=== PATIENT | female | born 1935 | race Two or more races ===

== ENCOUNTER 2016-06-01 09:36 | Emergency (ER) | payer OTHER, MEDICAID ==
[~2016-06-01] VITALS: Ht 152.4 cm; Wt 66.7 kg
[2016-06-01 09:53] VITALS: BP 147/83
[2016-06-01] MEDS ORDERED: cloNIDine HCL 0.1 MG TAB ONE (10:02)
[2016-06-01] MEDS ORDERED: cloNIDine HCL 0.1 MG TAB PO ONE (10:15)
== END 2016-06-01 12:25 | disposition home or self-care (01) ==
LOC: ER 09:50
DX: I10 Essential (primary) hypertension (principal)
CPT/HCPCS: 93005

== ENCOUNTER 2019-04-30 18:06 | Emergency (ER) | payer OTHER, MEDICAID ==
[~2019-04-30] VITALS: Ht 147.3 cm; Wt 65.3 kg
[2019-04-30 19:51] LABS: Basophils # (auto) 0 uL; Basophils % (auto) 0.2 % (0.0-2.0); Eosinophils # (auto) 0.1 uL; Eosinophils % (auto) 0.7 % (0.0-7.0); Hematocrit 40.2 % (36.0-46.0); Hemoglobin 13.7 g/dL (12.2-16.2); Lymphocytes # (auto) 1.1 uL; Lymphocytes % (auto) 12.9 % (10.0-50.0); Mean Corpuscular Hemoglobin 29.2 pg (28.0-32.0); Mean Corpuscular Hgb Conc. 34.2 g/dL (32.0-36.0); Mean Corpuscular Volume 85.5 fL (80.0-100.0); Monocytes # (auto) 0.7 uL; Monocytes % (auto) 8.8 % (0.0-12.0); Neutrophils # (auto) 6.4 uL; Neutrophils % (auto) 77.4 % (37.0-80.0); Platelet Count (auto) 181 10^3/uL (140-450); Red Cell Distribution Width 14.2 % (11.8-14.3); White Blood Cell 8.2 10^3/uL (4.4-10.8)
[2019-04-30] MEDS ORDERED: cefTRIAXone W LIDOCAINE 1 GM IM IM ONE (20:00)
[2019-04-30] MEDS ORDERED: cefTRIAXone SOD 1,000 MG VL ONE (20:23)
[2019-04-30] MEDS ORDERED: LIDOCAINE 2% (LOCAL ANESTH.) PF 5ml SDV ONE (20:23)
[2019-04-30 20:32] LABS: Albumin 3.2 g/dL (3.4-5.0); Calcium 8.5 mg/dL (8.5-10.1); Potassium 3.4 mmol/L (3.5-5.1)
[2019-04-30 20:35] LABS: BUN/Creatinine Ratio 19.7
[2019-04-30 20:40] LABS: Bilirubin, Total 0.3 mg/dL (0.2-1.0); Total Protein 8.1 g/dL (6.4-8.2)
[2019-04-30 21:12] VITALS: BP 139/76
== END 2019-04-30 21:14 | disposition home or self-care (01) ==
LOC: ER 18:06
DX: J18.9 Pneumonia, unspecified organism (principal); J20.9 Acute bronchitis, unspecified; J01.00 Acute maxillary sinusitis, unspecified; I10 Essential (primary) hypertension
CPT/HCPCS: 36415; 71046; 80053; 84484; 85025; 96372; 99284; J0696; J2001

== ENCOUNTER 2023-04-12 17:20 | Inpatient (IN) | payer OTHER, MEDICAID ==
[~2023-04-12] VITALS: Ht 152.4 cm; Wt 66.7 kg
[2023-04-12 18:33] LABS: Basophils # (auto) 0.1 10 ^3/uL (0-0.2); Basophils % (auto) 1.1 % (0.0-2.0); Eosinophils # (auto) 0 10 ^3/uL (0-0.8); Eosinophils % (auto) 0.1 % (0.0-7.0); Hematocrit 41.3 % (36.0-46.0); Hemoglobin 13.4 g/dL (12.2-16.2); Lymphocytes # (auto) 1.6 10 ^3/uL (0.4-5.4); Lymphocytes % (auto) 24.8 % (10.0-50.0); Mean Corpuscular Hemoglobin 27.9 pg (28.0-32.0); Mean Corpuscular Hgb Conc. 32.4 g/dL (32.0-36.0); Monocytes # (auto) 0.3 10 ^3/uL (0-1.3); Monocytes % (auto) 4.4 % (0.0-12.0); Neutrophils # (auto) 4.4 10 ^3/uL (1.6-8.6); Neutrophils % (auto) 69.6 % (37.0-80.0); Nucleated Red Blood Cells % 0.1 %; Red Cell Distribution Width 15.4 % (11.8-14.3); White Blood Cell 6.3 10^3/uL (4.4-10.8)
[2023-04-12 18:50] LABS: INR 1.07 (0.9-1.15); Partial Thromboplastin Time 26.9 SEC (24.5-34.5); Prothrombin Time 11.2 sec (9.3-11.8)
[2023-04-12 19:05] LABS: Alanine Aminotransferase 94 U/L (7-40); Albumin 4.3 g/dL (3.2-4.8); Alkaline Phosphatase 63 U/L (46-116); Anion Gap 8 (5-15); Aspartate Aminotransferase 77 U/L (13-40); BUN/Creatinine Ratio 14.5 (10.0-20.0); Bilirubin, Total 0.6 mg/dL (0.2-1.0); Blood Urea Nitrogen 22 mg/dL (9-23); Calcium 8.7 mg/dL (8.7-10.4); Carbon Dioxide 25 mmol/L (20-30); Chloride 105 mmol/L (98-107); Glucose 118 mg/dL (74-106); Sodium 138 mmol/L (136-145); Total Protein 7.8 g/dL (5.7-8.2)
[2023-04-12] MEDS ORDERED: ASPirin-EC 81 mg tab PO ONE (19:45)
[2023-04-12] MEDS ORDERED: NITROGLYCERIN 0.4 MG SL TAB SL PRN (20:00)
[2023-04-12] MEDS ORDERED: SODIUM CHLORIDE 0.9% 1,000 ML IV ONE (20:00)
[2023-04-12] MEDS ORDERED: ACETAMINOPHEN 325 MG TAB PO PRN (20:00)
[2023-04-12] MEDS ORDERED: MORPHINE SULFATE INJ 2 MG/ml SYRG IV PRN (20:00)
[2023-04-12] MEDS ORDERED: HYDROcodone-ACET 5/325MG TAB PO PRN (20:00)
[2023-04-12] MEDS ORDERED: FUROSEMIDE 20 MG/2 ML VIAL IV ONE (20:00)
[2023-04-12] MEDS ORDERED: SPIRONOLACTONE 25 MG TAB PO ONE (20:00)
[2023-04-12] MEDS: MAGNESIUM SULFATE 1GM/100ML 100 ML IV SCH ×2 (20:11→20:51)
[2023-04-12] MEDS ORDERED: ENOXAPARIN SOD 80 MG/0.8ML SYRINGE SC ONE (20:15)
[2023-04-12 20:20] VITALS: PULSE 55; RESP 18; O2SAT 100
[2023-04-12 21:36] LABS: Urine Bacteria FEW /hpf (None Seen); Urine Blood Negative /uL (Negative); Urine Clarity Clear (Clear); Urine Color Colorless (Yellow); Urine Protein, UAD Negative (Negative); Urine Specific Gravity 1.009 (1.001-1.035); Urine Urobilinogen Normal (Negative); Urine WBC 21 /hpf (0 - 5); Urine pH 6.5 (5.0-8.0)
[2023-04-12] MEDS: ATORVASTATIN 20 MG TAB PO SCH (21:57)
[2023-04-12 23:00] VITALS: BP 176/70; PULSE 55; RESP 17; TEMP 98.6; O2SAT 98
[2023-04-13] VITALS (18 sets, daily range): BP systolic 117–176; BP diastolic 47–75; PULSE 50–84; RESP 15–22; TEMP 97.5–98.6; O2SAT 95–100
[2023-04-13 05:52] LABS: Chloride 103 mmol/L (98-107); Potassium 3.6 mmol/L (3.5-5.1); Sodium 139 mmol/L (136-145)
[2023-04-13 05:53] LABS: Anion Gap 10 (5-15); Calcium 8.8 mg/dL (8.5-10.1); Carbon Dioxide 26 mmol/L (20-30)
[2023-04-13 05:58] LABS: BUN/Creatinine Ratio 15.6 (10.0-20.0); Blood Urea Nitrogen 22 mg/dL (9-23); Glucose 91 mg/dL (74-106)
[2023-04-13] MEDS: ASPirin 81 mg TAB PO SCH (08:19)
[2023-04-13] MEDS ORDERED: HYDR25TA5 PO (08:44)
[2023-04-13] MEDS ORDERED: LOSA100T58 PO (08:44)
[2023-04-13] MEDS ORDERED: AMIO200T13 PO (08:44)
[2023-04-13] MEDS ORDERED: METO25TA93 PO (08:44)
[2023-04-13] MEDS ORDERED: LEVO75TA6 PO (08:44)
[2023-04-13] MEDS ORDERED: ASPI81CH59 PO (08:44)
[2023-04-13] MEDS ORDERED: PANT40T PO (08:44)
[2023-04-13] MEDS ORDERED: hydroCHLOROthiazide 25 MG TAB PO ONE (10:45)
[2023-04-13] MEDS ORDERED: PANTOPRAZOLE 40 MG TAB PO ONE (10:45)
[2023-04-13] MEDS ORDERED: LOSARTAN POTASSIUM 50 MG TAB PO ONE (10:45)
[2023-04-13] MEDS ORDERED: cefTRIAXone 1GM/50ML D5W 50 ML IV ONE (11:00)
[2023-04-13] MEDS: ATORVASTATIN 20 MG TAB PO SCH (19:48)
[2023-04-14 05:00] VITALS: BP 136/55; PULSE 50; RESP 18; TEMP 98.2; O2SAT 98
[2023-04-14 05:35] LABS: Basophils # (auto) 0 10 ^3/uL (0-0.2); Basophils % (auto) 0.3 % (0.0-2.0); Eosinophils # (auto) 0 10 ^3/uL (0-0.8); Eosinophils % (auto) 0.9 % (0.0-7.0); Hematocrit 39.6 % (36.0-46.0); Hemoglobin 12.8 g/dL (12.2-16.2); Lymphocytes # (auto) 1.4 10 ^3/uL (0.4-5.4); Lymphocytes % (auto) 28.7 % (10.0-50.0); Mean Corpuscular Hemoglobin 27.9 pg (28.0-32.0); Mean Corpuscular Hgb Conc. 32.5 g/dL (32.0-36.0); Mean Corpuscular Volume 85.8 fL (80.0-100.0); Monocytes # (auto) 0.4 10 ^3/uL (0-1.3); Monocytes % (auto) 8.3 % (0.0-12.0); Neutrophils % (auto) 61.8 % (37.0-80.0); Nucleated Red Blood Cells % 0.1 %; Red Blood Cells 4.61 10^6/uL (4.0-5.20); Red Cell Distribution Width 15.1 % (11.8-14.3); White Blood Cell 4.8 10^3/uL (4.4-10.8)
[2023-04-14 05:39] LABS: Chloride 107 mmol/L (98-107); Potassium 3.9 mmol/L (3.5-5.1)
[2023-04-14 05:40] LABS: Calcium 8.6 mg/dL (8.5-10.1)
[2023-04-14 05:45] LABS: BUN/Creatinine Ratio 17.1 (10.0-20.0); Blood Urea Nitrogen 24 mg/dL (9-23); Glucose 100 mg/dL (74-106)
[2023-04-14 05:50] LABS: Carbon Dioxide 26 mmol/L (20-30)
[2023-04-14] MEDS ORDERED: LEVOTHYROXINE SODIUM 25 MCG TAB PO SCH (07:00)
[2023-04-14 08:00] VITALS: BP 142/94; PULSE 58; PULSE 71; RESP 16; TEMP 97.7; O2SAT 98
[2023-04-14 08:26] LABS: Anion Gap 8 (5-15); Sodium 141 mmol/L (136-145)
[2023-04-14 09:00] VITALS: BP 142/49; PULSE 71; RESP 16; TEMP 97.7; O2SAT 98
[2023-04-14] MEDS ORDERED: cefTRIAXone 1GM/50ML D5W 50 ML IV SCH (09:00)
[2023-04-14] MEDS: ASPirin 81 mg TAB PO SCH (09:33)
[2023-04-14] MEDS ORDERED: PANTOPRAZOLE 40 MG TAB PO SCH (10:00)
[2023-04-14] MEDS ORDERED: LOSARTAN POTASSIUM 50 MG TAB PO SCH (10:00)
[2023-04-14] MEDS ORDERED: hydroCHLOROthiazide 25 MG TAB PO SCH (10:00)
[2023-04-15 10:41] LABS: Free T3 1.92 pg/mL (2.3-4.2)
[2023-04-15 10:42] LABS: Free T4 (Free Thyroxine) 1.3 ng/dL (0.89-1.76)
== END 2023-04-14 13:34 | disposition home or self-care (01) | DRG 309 ==
LOC: ER 17:20 → TELE 20:08 → DOU IN ICU 23:00 → TELE-WESTW 04-13 15:17
PROVIDERS: ADMIT Nurse Practitioner Family; ATTEND Nurse Practitioner Family
DX: R00.1 Bradycardia, unspecified (principal); I13.0 Hypertensive heart and chronic kidney disease with heart failure and stage 1 through stage 4 chronic kidney disease, or unspecified chronic kidney disease; E66.9 Obesity, unspecified; Z68.28 Body mass index [BMI] 28.0-28.9, adult; I25.10 Atherosclerotic heart disease of native coronary artery without angina pectoris; K21.9 Gastro-esophageal reflux disease without esophagitis; N18.30 Chronic kidney disease, stage 3 unspecified; T46.2X5A Adverse effect of other antidysrhythmic drugs, initial encounter; R74.8 Abnormal levels of other serum enzymes; I50.9 Heart failure, unspecified; R94.31 Abnormal electrocardiogram [ECG] [EKG]; E07.9 Disorder of thyroid, unspecified; Y92.89 Other specified places as the place of occurrence of the external cause; Z95.5 Presence of coronary angioplasty implant and graft; Z90.710 Acquired absence of both cervix and uterus
CPT/HCPCS: 36415; 71045; 80048; 80053; 81001; 83735; 83880; 84439; 84443; 84481; 84484; 85025; 85610; 85730; 87081; 93005; 93306; 96361; 96374; 97163; G0378; J0696

== ENCOUNTER 2023-05-29 09:51 | Day surgery (SDC) | payer OTHER, MEDICAID ==
[~2023-05-29] VITALS: Ht 162.6 cm; Wt 67.6 kg
[~2023-05-29 09:51] MED LIST: HYDR25TA5 PO; LEVO75TA6 PO; LOSA100T58 PO; METO25TA93 PO; PANT40T PO; PRAV20TA3 PO
[2023-05-29] MEDS ORDERED: PANT40TA57 PO (10:36)
[2023-05-29] MEDS ORDERED: VANCOMYCIN 1GM/200ML 200 ML IV ONE ×2 (10:45→12:55)
[2023-05-29] MEDS ORDERED: LIDOCAINE 2%HCL (LOCAL ANESTH.) INJ 20ML MDV ONE (12:53)
[2023-05-29] MEDS ORDERED: VANCOMYCIN HCL 1000 MG VL ONE (12:55)
[2023-05-29] MEDS ORDERED: MIDAZOLAM HCL 2MG/2ML 2ml VIAL (1mg/ml) ONE (12:55)
[2023-05-29] MEDS ORDERED: fentaNYL CITRATE 100 MCG/2 ML VL ONE (12:55)
[2023-05-29] MEDS ORDERED: IOHEXOL 350 MG/ML 100ML IJ ONE (13:40)
[2023-05-29 14:25] VITALS: BP 143/67; PULSE 65; RESP 12; TEMP 97.4; O2SAT 98
[2023-05-29 14:41] VITALS: BP 142/62; PULSE 65; RESP 20; O2SAT 97
[2023-05-29 14:56] VITALS: BP 136/66; PULSE 65; RESP 17; O2SAT 96
[2023-05-29 15:11] VITALS: BP 145/74; PULSE 65; RESP 15; O2SAT 96
[2023-05-29 15:26] VITALS: BP 145/80; PULSE 65; RESP 14; O2SAT 99
[2023-05-29 15:42] VITALS: BP 132/81; PULSE 65; RESP 18; O2SAT 99
[2023-05-29] MEDS ORDERED: ACETAMINOPHEN 500 MG TAB PO ONE ×2 (16:00)
== END 2023-05-29 16:15 | disposition home or self-care (01) ==
LOC: CATH 09:51
PROVIDERS: ATTEND Internal Medicine
DX: I49.5 Sick sinus syndrome (principal); I44.39 Other atrioventricular block; I47.19 Other supraventricular tachycardia; I10 Essential (primary) hypertension; E78.5 Hyperlipidemia, unspecified; Z95.5 Presence of coronary angioplasty implant and graft; Z90.710 Acquired absence of both cervix and uterus; Z79.899 Other long term (current) drug therapy
CPT/HCPCS: 33208; 71045; C1785; C1898; J2250; J3010; J3370; J7030; Q9967; 99152

== ENCOUNTER 2024-06-09 15:22 | Inpatient (IN) | payer OTHER, MEDICAID ==
[~2024-06-09] VITALS: Ht 152.4 cm; Wt 64.5 kg
[~2024-06-09 15:22] MED LIST changes: +LOSA-535 PO; -LOSA100T58 PO; -PANT40T PO; +PANT40TA57 PO
--- NOTE | 2024-06-09 15:42 | ED.PDOC ---
Musculoskeletal HPI Comments HPI: Poor Historian. 88-year-old female sent by her doctor to rule out DVT on right lower extremity. Patient has a right lower extremity [id number] focal redness and tenderness there. He sent her for ultrasound. Denies any other associated symptoms of chest pain or shortness of breath or dizziness. Past Medcial History: Hypertension, thyroid Past Surgical History: Pacemaker, right knee surgery REVIEW OF SYSTEMS: CONSTITUTIONAL: Denies acute: fever, diaphoresis, chills, generalized weakness. HEAD: Denies acute: headache, photophobia Eyes: Denies acute: Double vision, vision loss, eye pain, eye discharge. EARS: Denies acute: tinnitus, hearing loss, ear discharge, ear pain, THROAT: Denies acute: sore throat, swelling, difficulty swallowing , pain with swallowing, change in voice. NECK: Denies acute: neck pain, neck swelling, stiff neck. HEART: Denies acute : chest pain, palpitations, LUNGS: Denies acute: SOB, wheezing, cough, hemoptysis ABDOMEN: Denies acute: abdominal pain, Nausea, Vomiting, diarrhea, melena , hematemesis, hematochezia SKIN: Denies acute: itchiness. EXTREMITIES: Denies acute: calf pain, numbness, tingling, weakness, Denies acute: Low back pain. Neuro: Denies acute: focal neurological deficit, motor or sensory focal neurological deficit, tremors, seizure like activity, confusion, dizziness, change in mental status, loss of bowel or bladder function, cauda equina like symptoms. : Denies acute: dysuria, hematuria, flank pain, increase in urinary frequency. PSYCH: Denies acute: hallucination, suicidal ideation, homicidal ideation. FEMALE: Denies acute: abnormal vaginal bleeding, foul odor, unusual discharge. PHYSICAL EXAM: General: no acute distress, awake and alert. Head: normocephalic, atraumatic. Neck: supple, trachea is midline, no swelling. Throat: Normal phonation. Eyes:, no erythema, no purulent discharge, no proptosis, no icterus. Heart: regular rate, regular rhythm, no significant murmur appreciated. Lungs: no apparent respiratory distress, Able to speak in full sentences. No wheezing, no rhonchi, no crackles. No stridors Clear to auscultation bilaterally. Abdomen: non tender to palpation, non distended, soft, no guarding, no rebound, + bowel sounds. Neuro: Awake, Alert, oriented to name, self, situation, follows commands GCS=15. Speech is normal. Skin: no petechia, no purpura, no cyanosis, non-pale, not jaundice. Lower extremities: --no - Pitting edema evaluation of the right lower extremity. Noted focal area of redness that is tender to palpation in the medial calf. Patient is neurovascularly intact in the affected extremity. Pedal pulses palpable. Sensory and motor are present. There is noted varicose veins present. Makes eye contact. moves all four extremities. Face: no apparent facial droop. Ambulating in the ED independently. Time Seen by MD: 15:23 Primary Care Provider: KAEL Buckley Notes: Medications, Allergies Allergies: Coded Allergies: NO KNOWN ALLERGIES (Unverified , 05/27/23) Home Meds Reported Medications Pantoprazole Sodium Sesquihydr (Pantoprazole Sodium Dr) 40 Mg Tab, 40 MG PO DAILY for gerd, TAB 05/29/23 Pravastatin Sodium (PRAVACHOL TABLET) 20 Mg Tb, 1 TAB PO DAILY for hyperlipidemia, #30 TAB 5 Refills 05/27/23 Metoprolol Succinate (Metoprolol Succinate Er) 25 Mg Tab, 1 TAB PO BID for htn 04/13/23 Hctz (Hydrochlorothiazide) 25 Mg Tab, 1 TAB PO DAILY for edema/htn 04/13/23 Levothyroxine Sodium (Levothyroxine Sodium) 75 Mcg Tab, 1 TAB PO DAILY for low thyroid 04/13/23 Losartan Potassium (Losartan Potassium) 100 Mg Tab, 1 TAB PO DAILY for htn 04/13/23 Information Source: Patient, Relative Location: Right Past Medical History PAST MEDICAL HISTORY: GERD, HTN, Thyroid Surgical History: Hysterectomy, Thyroidectomy MULTIMEDIA AUTHORING SPECIALIST History: No Pertinent MULTIMEDIA AUTHORING SPECIALIST History Family History Family History: Reviewed,noncontributory to illness Social History Smoker: Non-Smoker Alcohol: Denies ETOH Use Drugs: Denies Drug Use Lives In: Home Was a procedure done? Was a procedure done?: No Differential Diagnosis EXT Differential Diagnosis: Other (Leg swellingDdx include but not limited to DVT, ischemic limb, pitting edema, volume overload, CHF, cellulitis, hematoma, compartment syndrome, dependent edema, venous stasis.) X-Ray, Labs, Meds, VS Vital Signs Date Time Temp Pulse Resp B/P (MAP) Pulse Ox O2 Delivery O2 Flow Rate FiO2 06/09/24 20:00 64 06/09/24 15:40 98.3 74 16 163/69 (100) 97 Lab Test 06/09/24 20:16 06/09/24 18:06 06/09/24 16:33 Range/Units Troponin I High Sensitivity 156 *H 160 *H 164 *H </=34 ng/L White Blood Count 5.1 4.4-10.8 10^3/uL Red Blood Count 4.44 4.0-5.20 10^6/uL Hemoglobin 12.4 12.2-16.2 g/dL Hematocrit 38.1 36.0-46.0 % Mean Corpuscular Volume 85.8 80.0-100.0 fL Mean Corpuscular Hemoglobin 28.0 28.0-32.0 pg Mean Corpuscular Hemoglobin Concent 32.6 32.0-36.0 g/dL Red Cell Distribution Width 14.0 11.8-14.3 % Platelet Count 164 140-450 10^3/uL Mean Platelet Volume 7.9 6.9-10.8 fL Neutrophils (%) (Auto) 62.6 37.0-80.0 % Lymphocytes (%) (Auto) 27.5 10.0-50.0 % Monocytes (%) (Auto) 8.8 0.0-12.0 % Eosinophils (%) (Auto) 0.8 0.0-7.0 % Basophils (%) (Auto) 0.3 0.0-2.0 % Neutrophils # (Auto) 3.2 1.6-8.6 10 ^3/uL Lymphocytes # (Auto) 1.4 0.4-5.4 10 ^3/uL Monocytes # (Auto) 0.4 0-1.3 10 ^3/uL Eosinophils # (Auto) 0 0-0.8 10 ^3/uL Basophils # (Auto) 0 0-0.2 10 ^3/uL Nucleated Red Blood Cells 0.1 % Erythrocyte Sedimentation Rate 26 H 0-20 mm/hr Sodium Level 140 136-145 mmol/L Potassium Level 3.6 3.5-5.1 mmol/L Chloride Level 104 98-107 mmol/L Carbon Dioxide Level 27 20-31 mmol/L Anion Gap 9 5-15 Blood Urea Nitrogen 26 H 9-23 mg/dL Creatinine 1.21 H 0.550-1.02 mg/dL Glomerular Filtration Rate Calc 43 >90 mL/min BUN/Creatinine Ratio 21.5 H 10.0-20.0 Serum Glucose 98 74-106 mg/dL Lactic Acid Level 0.8 0.4-2.0 mmol/L Calcium Level 9.4 8.7-10.4 mg/dL Total Bilirubin 0.5 0.2-1.0 mg/dL Aspartate Amino Transferase (AST) 27 13-40 U/L Alanine Aminotransferase (ALT) 25 7-40 U/L Alkaline Phosphatase 72 46-116 U/L C-Reactive Protein High Sensitivity 0.68 <1.0 mg/dL B-Type Natriuretic Peptide 187.59 0-100 pg/mL Total Protein 7.4 5.7-8.2 g/dL Albumin 4.2 3.2-4.8 g/dL Current Medications Medications (Trade) Dose Ordered Sig/Pinky Route Start Time Stop Time Status Last Admin Enoxaparin Sodium (Lovenox) 60 mg ONCE ONCE SC 06/09/24 17:15 06/09/24 17:16 DC 06/09/24 17:23 [place] [id number] Ph: [phone] DIAGNOSTIC IMAGING Diagnostic Imaging Report : [id number] Signed PATIENT: SCOTTIE SWENSONACCT: [id number] UNIT: [id number] : 1935 LOC: ER ROOM / BED: / AGE / SEX: 88 / F ADM STATUS: REG ER SERVICE [id number] ORDERING PHYSICIAN: DEE PAREDES DO PROCEDURE(s): BLDVT - BiLat Lower DVT REASON: pain, redness ORDER NUMBER(s): [id number], ACCESSION NUMBER(s): [id number] Bilateral lower extremity venous duplex Clinical History: pain, redness Comparison: None Technique: Duplex Doppler evaluation of the deep venous systems of both lower extremities from the common femoral veins to the popliteal veins including color Doppler and spectral/pulsed waveform analysis was performed. Findings: RIGHT SIDE: The common femoral vein demonstrates appropriate compressibility and waveform variability. There is compressibility/patency of the great saphenous vein at the proximal thigh. The femoral vein demonstrates lack of compressibility and phasic flow in the distal segment. The proximal and mid segments are patent. The deep femoral vein demonstrates appropriate compressibility and waveform variability. The popliteal vein demonstrates lack of compressibility and phasic flow. There is color flow at the tibioperoneal trunk and in the posterior tibial vein. LEFT SIDE: The common femoral vein demonstrates appropriate compressibility and waveform variability. There is compressibility/patency of the great saphenous vein at the proximal thigh. The femoral vein demonstrates appropriate compressibility and waveform variability. The deep femoral vein demonstrates appropriate compressibility and waveform variability. The popliteal vein demonstrates appropriate compressibility and waveform variability. There is color flow at the tibioperoneal trunk and in the posterior tibial vein. Impression: Right lower extremity : Nonocclusive DVT involving distal femoral and popliteal veins. Left lower extremity: No DVT. Dr. Paredes was notified of findings upon completion of the exam by the tyson hnologist on 06/09/2024. ATED BY: ANA MARIA MONTES MD DICTATED DATE/TIME: 06/09/241634 SIGNED BY: ANA MARIA MONTES MD SIGNED DATE/TIME: 06/09/241634 CC: Time of 1ST Reevaluation: 20:38 (The case was discussed with the admitting team (HPI, physical exam, labs and diagnostic tests that were available at the time of disposition, ED course, treatment plan) on the phone. They agreed to admit the patient to their service and assume care of this patient from this point forward. Nurse practitioner Inge) Reevaluation 1ST: Unchanged Patient Education/Counseling: Diagnosis, Treatment Family Education/Counseling: Other Comments Patient presented with the above HPI.---leg pain and swelling---workup was initiated. patient was found with the above mentioned diagnosis. the following medications were ordered: please refer to order lists of meds and tests obtained by myself Dr. Paredes. Patient ED course and VS have been stabilized. Patient has been reassessed in the ED and remained in a stable condition. Pertinent incidental findings were discussed with the patient and/or family. Patient/family voices understanding and is agreeable with plan. Patient has been observed in the ED adequate length of time to insure improvement/stability. Escalation of care considered: Consideration of escalation to observation or admission Patient was ADMITTED to the medicine team for further evaluation and treatment of their presentation. Lovenox initiated in the ED. All the reports of any imaging studies that were ordered by myself were reviewed by myself. Departure 1 Departure Time of Disposition: 17:00 Impression: Primary Impression: DVT (deep vein thrombosis) in Additional Impressions: Elevated troponin Pulmonary embolus Disposition: ADMITTED INPATIENT Admit to: Tele Condition: Guarded Discharged With: Self Critical Care Note Critical Care Time?: Yes (1 hr-critical care time only) I personally scribed for DEE PAREDES DO ([email or web address]) on 06/09/24 at 19:26. Electronically submitted by Lj Redman ([email or web address]). DEE PAREDES DO Jun 09, 2024 15:42
--- NOTE | 2024-06-09 16:37 | DVH ---
Bilateral lower extremity venous duplex Clinical History: pain, redness Comparison: None Technique: Duplex Doppler evaluation of the deep venous systems of both lower extremities from the co mmon femoral veins to the popliteal veins including color Doppler and spectral/pulsed waveform analys is was performed. Findings: RIGHT SIDE: The common femoral vein demonstrates appropriate compressibility and waveform variability. There is compressibility/patency of the great saphenous vein at the proximal thigh. The femoral vein demonstrates lack of compressibility and phasic flow in the distal segment. The pro ximal and mid segments are patent. The deep femoral vein demonstrates appropriate compressibility and waveform variability. The popliteal vein demonstrates lack of compressibility and phasic flow. There is color flow at the tibioperoneal trunk and in the posterior tibial vein. LEFT SIDE: The common femoral vein demonstrates appropriate compressibility and waveform variability. There is compressibility/patency of the great saphenous vein at the proximal thigh. The femoral vein demonstrates appropriate compressibility and waveform variability. The deep femoral vein demonstrates appropriate compressibility and waveform variability. The popliteal vein demonstrates appropriate compressibility and waveform variability. There is color flow at the tibioperoneal trunk and in the posterior tibial vein. Impression: Right lower extremity : Nonocclusive DVT involving distal femoral and popliteal veins. Left lower extremity: No DVT. Dr. Cruz was notified of findings upon completion of the exam by the technologist on 06/09/2024.
[2024-06-09 17:00] LABS: Basophils # (auto) 0 10 ^3/uL (0-0.2); Basophils % (auto) 0.3 % (0.0-2.0); Eosinophils # (auto) 0 10 ^3/uL (0-0.8); Eosinophils % (auto) 0.8 % (0.0-7.0); Hematocrit 38.1 % (36.0-46.0); Hemoglobin 12.4 g/dL (12.2-16.2); Lymphocytes # (auto) 1.4 10 ^3/uL (0.4-5.4); Lymphocytes % (auto) 27.5 % (10.0-50.0); Mean Corpuscular Hgb Conc. 32.6 g/dL (32.0-36.0); Mean Corpuscular Volume 85.8 fL (80.0-100.0); Monocytes # (auto) 0.4 10 ^3/uL (0-1.3); Monocytes % (auto) 8.8 % (0.0-12.0); Neutrophils # (auto) 3.2 10 ^3/uL (1.6-8.6); Neutrophils % (auto) 62.6 % (37.0-80.0); Nucleated Red Blood Cells % 0.1 %; Platelet Count (auto) 164 10^3/uL (140-450); Red Blood Cells 4.44 10^6/uL (4.0-5.20); White Blood Cell 5.1 10^3/uL (4.4-10.8)
[2024-06-09] MEDS: ENOXAPARIN SOD 60 MG/0.6 ML SYRINGE SC ONE (17:23)
[2024-06-09 17:26] LABS: Alanine Aminotransferase 25 U/L (7-40); Albumin 4.2 g/dL (3.2-4.8); Alkaline Phosphatase 72 U/L (46-116); Anion Gap 9 (5-15); Aspartate Aminotransferase 27 U/L (13-40); BUN/Creatinine Ratio 21.5 (10.0-20.0); Bilirubin, Total 0.5 mg/dL (0.2-1.0); CRP High Sensitivity 0.68 mg/dL (<1.0); Calcium 9.4 mg/dL (8.7-10.4); Carbon Dioxide 27 mmol/L (20-31); Chloride 104 mmol/L (98-107); Glucose 98 mg/dL (74-106); Potassium 3.6 mmol/L (3.5-5.1); Sodium 140 mmol/L (136-145); Total Protein 7.4 g/dL (5.7-8.2)
[2024-06-09 17:27] LABS: Blood Urea Nitrogen 26 mg/dL (9-23)
[2024-06-09 17:39] LABS: Erythrocyte Sedimentation Rate 26 mm/hr (0-20)
--- NOTE | 2024-06-09 20:33 | DVH ---
PROCEDURE: CT CT ANGIO CHEST CONTRAST 06/09/2024 07:54 PM INDICATION: dvt COMPARISON: None TECHNIQUE: Coverage: Thorax IV contrast: Administered Phases: Arterial Multiplanar 3-D Maximum Intensity Projection images (MIP) reconstructions were created by the technnaya stout in the coronal and sagittal planes as part of the CT angiography protocol. Adverse events: None Medication laboratory values were reviewed to verify the patient meets criteria for contrast administ ration. All CT scans at this medical facility are performed using dose modulation techniques as appropriate t o a performed exam including the following: Automated exposure control was utilized; adjustment of th e MA and/or KV according to patient size; and use of iterative reconstruction technique. Radiation dose: CTDIvol 23 mGy, DLP 717 mGy*cm. FINDINGS: Cardiovascular: Pulmonary embolus in the lobar and segmental branches of the right upper lobe , occlu sive in distal lower branch. Aorta is normal in caliber. The heart is mildly enlarged. Multilead pace maker in the left upper chest wall with leads extending, cardiac chambers. Coronary artery calcificat ion noted. Lungs: Mild bibasilar subsegmental atelectasis. No lobar consolidation. No pleural effusion. No pneum othorax. The airways are patent. Thyroid: Unremarkable Esophagus: Unremarkable. Lymphatics: No hilar or mediastinal lymphadenopathy. Bones/soft tissues: No acute abnormality. Mild anterior compression deformity of T11 with approximate ly 30% loss of height without retropulsion. Severe bilateral glenohumeral joint osteoarthritis Upper abdomen: No acute abnormality. Other: None. IMPRESSION: 1. Occlusive and partially occlusive segmental branches of the right upper pulmonary arteries. Critical Result: Pulmonary emboli Findings discussed with DEE PAREDES at 06/09/2024 08:25 PM, and acknowledged receipt and understandin g of the findings. ..
[2024-06-09] MEDS ORDERED: ACETAMINOPHEN 325 MG TAB PO PRN (20:45)
[2024-06-09] MEDS ORDERED: HYDROcodone-ACET 5/325MG TAB PO PRN (20:45)
[2024-06-09] MEDS ORDERED: ONDANSETRON HCL 4 MG/2 ML VIAL IV PRN (20:45)
[2024-06-09] MEDS: IOHEXOL 350 MG/ML 100ML IJ ONE (20:58)
[2024-06-09 21:02] VITALS: PULSE 65; RESP 18; O2SAT 98
[2024-06-09 21:39] LABS: Triglycerides 118 mg/dL (< 150)
[2024-06-09 21:41] LABS: HDL Cholesterol 40 mg/dL (40-59)
[2024-06-09 21:43] LABS: Cholesterol 209 mg/dL (< 200); LDL Cholesterol 159 mg/dL (< 100)
[2024-06-09 22:00] VITALS: PULSE 65; RESP 19; O2SAT 96
[2024-06-09 22:32] LABS: INR 1.13 (0.9-1.15); Prothrombin Time 11.8 sec (9.3-11.8)
[2024-06-10] MEDS: FAMOTIDINE 20 MG TAB PO SCH (00:44)
[2024-06-10] MEDS: ATORVASTATIN 20 MG TAB PO SCH (00:44)
--- NOTE | 2024-06-10 03:53 | DVHHP2 ---
Admitting Diagnosis: Pulmonary embolism, right lower extremity DVT, Elevated troponin History of Present Illness History Source: Patient, Family Exam Limitations: No limitations HPI Mrs. Eryn Miller is an 88 yo female with a past medical history of hypertension, Thyroid, pacemaker, right knee surgery who presents with a chief complaint of right lower extremity swelling , sent by her PCP to the ED to rule out DVT. Patient reports right lower extremity pain, right sided chest pain. Patient denies dyspnea, headaches, dizziness, lightheadedness, abdominal pain, nausea, vomiting, fevers, chills. Patient bilateral lower extremity venous ultrasound resulted Right lower extremity : Nonocclusive DVT involving distal femoral and popliteal veins. Left lower extremity: No DVT. Patient CTA chest resulted 1. Occlusive and partially occlusive segmental branches of the right upper pulmonary arteries. Critical Result: Pulmonary emboli. Patient troponin levels 164, 160, BNP 187, Na 140, K 3.6, BUN 26/1.21, WBC 5.1, H&H 12.4/38.1, Platelets 164. Patient daughter at bedside reports patient had a stent placement by Dr. Walsh and a pacemaker placement about a year ago. Patient admitted for further evaluation and treatment. Home Meds Reported Medications Pantoprazole Sodium Sesquihydr (Pantoprazole Sodium Dr) 40 Mg Tab, 40 MG PO DAILY for gerd, TAB 05/29/23 Pravastatin Sodium (PRAVACHOL TABLET) 20 Mg Tb, 1 TAB PO DAILY for hyperlipidemia, #30 TAB 5 Refills 05/27/23 Metoprolol Succinate (Metoprolol Succinate Er) 25 Mg Tab, 1 TAB PO BID for htn 04/13/23 Hctz (Hydrochlorothiazide) 25 Mg Tab, 1 TAB PO DAILY for edema/htn 04/13/23 Levothyroxine Sodium (Levothyroxine Sodium) 75 Mcg Tab, 1 TAB PO DAILY for low thyroid 04/13/23 Losartan Potassium (Losartan Potassium) 100 Mg Tab, 1 TAB PO DAILY for htn 04/13/23 Past Medical History Cardiac: HTN Pulmonary: No pertinent Hx Central Nervous System: No pertinent Hx GI: No pertinent Hx Hemotology/Oncology: No pertinent Hx Hepatobiliary: No pertinent Hx Psychiatric: No pertinent Hx Musculoskeletal: No pertinent Hx Rheumotologic: No pertinent Hx Infectious Disease: No peritnent Hx ENT: No pertinent Hx Renal/: No pertinent Hx Endocrine: Hypothyroidism Dermatology: No pertinent Hx Past Surgical History: Pacemaker Patient Family History: Patient reports no known family medical history. Smoker: No Hx (Negative) Alocohol: None Drugs: None Lives with: With family Domestic Violence: Neg Review of Systems Constitutional: No symptom reported Ears, Nose, & Throat: No symptom reported Eyes: No symptom reported Pulmonary/Respiratory: No symptom reported Cardiovascular: Chest Pain Gastrointestinal: No symptom reported Genitourinary: No symptom reported Musculoskeletal: Leg pain (right lower extremity pain with swelling) Skin: No symptom reported Psychiatric: No symptom reported Endocrine: No symptom reported Hemotologic/Lymphatic: No symptom reported H&P Exam Vital Signs Vital Signs Date Time Temp Pulse Resp B/P (MAP) Pulse Ox O2 Delivery O2 Flow Rate FiO2 06/10/24 03:00 66 13 149/60 (89) 97 06/09/24 22:00 Room Air* 0 21 06/09/24 21:02 98.0 98.0 General Appeara: Well developed, Well nourished, Normal Appearance Head Exam: Normal inspection Neck Exam: Normal inspection, Non-tender, Normal alignment Eye Exam: bilateral eye Normal inspection, bilateral eye PERRL, bilateral eye EOMI Ear Exam: bilateral ear Auricle normal Nasal Exam: Normal inspection Mouth: Normal Inspection Pulmonary/Respiratory: Normal inspection, Normal breath sounds, Chest non- tender, Lungs clear Cardiovascular/Chest: Normal inspection, Edema (right lower extremity), Regular rate, Normal Rhythm Peripheral Pulses: 2+ dorsalis pedis (R), 2+ dorsalis pedis (L), 2+ Radial (R), 2+ Radial (L) Abdominal Exam: Normal bowel sounds, Soft, No tenderness Rectal Exam: Deferred Pelvic Exam: Not done VOCATIONAL COUNSELOR Exam: Normal hearing, Normal speech, PERRL Neuro/Mental St: Alert, Oriented Appearance: Appropriate appearance, Appropriate insight Eye contact/ Speech: Cooperative, Good eye contact, Normal speech Thoughts/Psych: Normal thought pattern Skin Exam: Normal inspection, Normal color, Warm/dry Labs/Xrays Labs Test 06/09/24 21:56 06/09/24 20:50 06/09/24 16:33 Range/Units Prothrombin Time 11.8 9.3-11.8 sec Prothrombin Time INR 1.13 0.9-1.15 Troponin I High Sensitivity 163 *H </=34 ng/L Triglycerides Level 118 < 150 mg/dL Cholesterol Level 209 H < 200 mg/dL LDL Cholesterol 159 H < 100 mg/dL HDL Cholesterol 40 40-59 mg/dL White Blood Count 5.1 4.4-10.8 10^3/uL Red Blood Count 4.44 4.0-5.20 10^6/uL Hemoglobin 12.4 12.2-16.2 g/dL Hematocrit 38.1 36.0-46.0 % Mean Corpuscular Volume 85.8 80.0-100.0 fL Mean Corpuscular Hemoglobin 28.0 28.0-32.0 pg Mean Corpuscular Hemoglobin Concent 32.6 32.0-36.0 g/dL Red Cell Distribution Width 14.0 11.8-14.3 % Platelet Count 164 140-450 10^3/uL Mean Platelet Volume 7.9 6.9-10.8 fL Neutrophils (%) (Auto) 62.6 37.0-80.0 % Lymphocytes (%) (Auto) 27.5 10.0-50.0 % Monocytes (%) (Auto) 8.8 0.0-12.0 % Eosinophils (%) (Auto) 0.8 0.0-7.0 % Basophils (%) (Auto) 0.3 0.0-2.0 % Neutrophils # (Auto) 3.2 1.6-8.6 10 ^3/uL Lymphocytes # (Auto) 1.4 0.4-5.4 10 ^3/uL Monocytes # (Auto) 0.4 0-1.3 10 ^3/uL Eosinophils # (Auto) 0 0-0.8 10 ^3/uL Basophils # (Auto) 0 0-0.2 10 ^3/uL Nucleated Red Blood Cells 0.1 % Erythrocyte Sedimentation Rate 26 H 0-20 mm/hr Sodium Level 140 136-145 mmol/L Potassium Level 3.6 3.5-5.1 mmol/L Chloride Level 104 98-107 mmol/L Carbon Dioxide Level 27 20-31 mmol/L Anion Gap 9 5-15 Blood Urea Nitrogen 26 H 9-23 mg/dL Creatinine 1.21 H 0.550-1.02 mg/dL Glomerular Filtration Rate Calc 43 >90 mL/min BUN/Creatinine Ratio 21.5 H 10.0-20.0 Serum Glucose 98 74-106 mg/dL Lactic Acid Level 0.8 0.4-2.0 mmol/L Calcium Level 9.4 8.7-10.4 mg/dL Total Bilirubin 0.5 0.2-1.0 mg/dL Aspartate Amino Transferase (AST) 27 13-40 U/L Alanine Aminotransferase (ALT) 25 7-40 U/L Alkaline Phosphatase 72 46-116 U/L C-Reactive Protein High Sensitivity 0.68 <1.0 mg/dL B-Type Natriuretic Peptide 187.59 0-100 pg/mL Total Protein 7.4 5.7-8.2 g/dL Albumin 4.2 3.2-4.8 g/dL Assessment/Plan Problem List: (1) Pulmonary embolus (2) DVT (deep vein thrombosis) in (3) Elevated troponin Plan This is an 88 yo female with a known history of hypertension, Hypothyroid, pacemaker placement, [place] with stent placement, right knee surgery who presents with right lower extremity swelling/pain. Patient found to have 1. Pulmonary embolism 2. Right lower extremity DVT 3. Elevated troponin 4. hx of hypothyroidism Plan Admit SDU Cardiology consultation, 2D echocardiogram, serial troponin levels, ASA, Statin, Lovenox 1mg/kg SC q 12h Monitor CBC, BMP Supplemental oxygen as needed to keep 02 saturations above 92% Antihypertensive home medication reconciled Levothyroxine home medication continued Discussed all above with patient and patient daughter at bedside in ED 6. Patient and daughter verbalized agreement and understanding of care plan. All questions were answered. Discussed assessment and care plan with supervising MD. Patient is seen and evaluated by me this afternoon. Patient seen evaluated and recommended by nurse practitioner airplane cabin attendant. I agree with her evaluation, documentation, assessment and care plan as outlined. I discussed with the patient and daughter who is at bedside regarding care plan. Plan discussed with: Patient, Daughter, Other Code Visit Code Visit Total Time (mins): 45 OBDULIA FAUST Jun 10, 2024 03:53 RUMA RUEDA MD Jun 10, 2024 13:52
[2024-06-10 05:46] LABS: Basophils # (auto) 0 10 ^3/uL (0-0.2); Basophils % (auto) 0.6 % (0.0-2.0); Eosinophils # (auto) 0 10 ^3/uL (0-0.8); Eosinophils % (auto) 0.7 % (0.0-7.0); Hematocrit 35.9 % (36.0-46.0); Lymphocytes # (auto) 1.8 10 ^3/uL (0.4-5.4); Lymphocytes % (auto) 33.8 % (10.0-50.0); Mean Corpuscular Hemoglobin 28.4 pg (28.0-32.0); Mean Corpuscular Hgb Conc. 33.6 g/dL (32.0-36.0); Mean Corpuscular Volume 84.6 fL (80.0-100.0); Monocytes # (auto) 0.5 10 ^3/uL (0-1.3); Monocytes % (auto) 9.1 % (0.0-12.0); Neutrophils # (auto) 2.9 10 ^3/uL (1.6-8.6); Neutrophils % (auto) 55.8 % (37.0-80.0); Nucleated Red Blood Cells % 0.1 %; Platelet Count (auto) 164 10^3/uL (140-450); Red Blood Cells 4.24 10^6/uL (4.0-5.20); White Blood Cell 5.2 10^3/uL (4.4-10.8)
[2024-06-10 06:08] LABS: Chloride 106 mmol/L (98-107); Potassium 3.6 mmol/L (3.5-5.1); Sodium 139 mmol/L (136-145)
[2024-06-10 06:09] LABS: Anion Gap 11 (5-15); Calcium 9.5 mg/dL (8.7-10.4); Carbon Dioxide 22 mmol/L (20-31)
[2024-06-10 06:14] LABS: BUN/Creatinine Ratio 20.4 (10.0-20.0); Blood Urea Nitrogen 20 mg/dL (9-23); Glucose 88 mg/dL (74-106)
[2024-06-10] MEDS: LEVOTHYROXINE SODIUM 25 MCG TAB PO SCH (06:41)
[2024-06-10 07:30] VITALS: PULSE 65; RESP 18; O2SAT 99
[2024-06-10] MEDS: ASPirin-EC 81 mg tab PO SCH (09:58)
[2024-06-10] MEDS: hydroCHLOROthiazide 25 MG TAB PO SCH (09:59)
[2024-06-10] MEDS: LOSARTAN POTASSIUM 50 MG TAB PO SCH (09:59)
[2024-06-10] MEDS: ENOXAPARIN SOD 100 MG/1 ML SYRINGE SC SCH (10:00)
--- NOTE | 2024-06-10 15:42 | DVHSR ---
APPROVED REPORT EXAM: Two-dimensional and M-mode echocardiogram with Doppler and color Doppler. Blood Pressure: 148/52 mmHg INDICATION elevated troponin, PE RISK FACTORS Height: 5'0, Weight: 142 DIMENSIONS LVDd3.5 (3.8-5.7cm)LA (2D)3.4 (1.9-4.0cm)Aortic Root3.3 (2.0-3.7cm) LVDs2.5 (2.5-4.0cm)LA (MM) (1.9-4.0cm)Aortic Cusp Exc0.4 (1.5-2.0cm) EF (%) 55.0 (55-70%)Rt. Atrium3.1 (1.9-4.0cm)Asc. Aorta3.0 cm IVSd1.2 (0.7-1.1cm)RV (D) (1.8-2.4cm) PWd0.8 (0.7-1.1cm) Mitral Valve MitralMitral Stenosis E wave0.72m/sMV Mean GR.mmHg A wave1.10m/sMV Peak GR.124mmHg E/A ratio0.72D MVAcm2 DECEL [id number] 1/2 Timems Aortic Valve Aortic ValveAortic Stenosis V11.04m/Miguel Mean GR.10mmHg V22.13m/Miguel Peak GR.18mmHg LVOT Diameter1.9 (1.8-2.4cm)Doppler AVA1.38cm2 AI P 1/2 Drlb745.39ms Pulmonic Valve V21.01m/s Tricuspid Valve TR Velocity2.35m/s [id number] Other Information Quality : Technically LimitedRhythm : Technically limited study due to body habitus.patient position. Conclusion Sinus bradycardia. Aortic root enlargement. Concentric LVH. Aortic sclerosis. Diminished excursion of the aortic leaflets. Mild mitral annular calcification. EF of 50% with normal RV function. Trace aortic insufficiency. Moderate tricuspid regurgitation. Trace mitral insufficiency. Small pericardial effusion/pericardial fat pad. No intracardiac masses thrombi or vegetations. Pacing lead noted in RV apex
[2024-06-10 19:30] VITALS: PULSE 79; RESP 16; O2SAT 97
[2024-06-11 06:08] LABS: Basophils # (auto) 0 10 ^3/uL (0-0.2); Basophils % (auto) 0.4 % (0.0-2.0); Eosinophils # (auto) 0.1 10 ^3/uL (0-0.8); Eosinophils % (auto) 1.5 % (0.0-7.0); Hematocrit 36.8 % (36.0-46.0); Hemoglobin 12.3 g/dL (12.2-16.2); Lymphocytes # (auto) 1.7 10 ^3/uL (0.4-5.4); Lymphocytes % (auto) 35.6 % (10.0-50.0); Mean Corpuscular Hemoglobin 28.4 pg (28.0-32.0); Mean Corpuscular Hgb Conc. 33.4 g/dL (32.0-36.0); Monocytes # (auto) 0.5 10 ^3/uL (0-1.3); Monocytes % (auto) 9.8 % (0.0-12.0); Neutrophils # (auto) 2.5 10 ^3/uL (1.6-8.6); Neutrophils % (auto) 52.7 % (37.0-80.0); Nucleated Red Blood Cells % 0.1 %; Platelet Count (auto) 171 10^3/uL (140-450); Red Blood Cells 4.33 10^6/uL (4.0-5.20); Red Cell Distribution Width 13.7 % (11.8-14.3); White Blood Cell 4.7 10^3/uL (4.4-10.8)
[2024-06-11 06:15] LABS: Chloride 105 mmol/L (98-107); Potassium 3.8 mmol/L (3.5-5.1); Sodium 139 mmol/L (136-145)
[2024-06-11 06:16] LABS: Anion Gap 7 (5-15); Calcium 9.4 mg/dL (8.7-10.4); Carbon Dioxide 27 mmol/L (20-31)
[2024-06-11 06:21] LABS: BUN/Creatinine Ratio 17.8 (10.0-20.0); Blood Urea Nitrogen 23 mg/dL (9-23); Glucose 96 mg/dL (74-106)
[2024-06-11 07:11] VITALS: TEMP 98.2
--- NOTE | 2024-06-11 10:09 | DVHINCON2 ---
Date Seen: Jun 11, 2024 Referring Physician MD Rupinder Reason for Consultation PE History of Present Illness This is a Arabic-speaking 88-year-old female patient who presents to the emergency room with chief complaint of right lower extremity pain and swelling for approximately three weeks. Patient reports she first went to a clinic on [address] and was told to come to the emergency room for further evaluation. Cardiology has now been consulted for pulmonary embolism that was found on CT angiography. The patient was also noted to have a nonocclusive DVT involving distal, femoral, and popliteal veins. She denies any chest pain or shortness of breath at time of assessment. She does mentioned dyspnea on exertion. At the time of assessment, she remains on room air with O2 saturations at 98%. Initial twelve lead electrocardiogram done at time of assessment and reveals normal sinus rhythm. Initial troponin level of 164ng/L with flat trend thereafter. Significant past medical history includes hypertension, dyslipidemia, s/p permanent pacemaker insertion (Biotronik), thyroid disease, varicose veins, and obesity. Patient also noted to be on Plavix and aspirin therapy. When asked if she has any history of stents, she denies. It is worth noting that the patient is a very poor historian. We will try to obtain further medical history from family listed in chart. 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 Past Medical History Past medical history reviewed. No other significant than mentioned above. Past Surgical History Status post permanent pacemaker insertion on 05/29/23 Hysterectomy Thyroidectomy Right knee replacement Family History: Patient reports no known family medical history. Family History Family history reviewed. Social History Denies the use of tobacco, alcohol or illicit drugs. Allergies: Coded Allergies: NO KNOWN ALLERGIES (Unverified , 05/27/23) Home Meds Active Scripts Apixaban Base (ELIQUIS) 5 Mg Tab, 5 MG PO BID, #120 TAB 1 Refill Take two tablets (10 mg) twice a day for next seven days. Then continue one tablet (5 mg) twice a day as prescribed. Prov:RUMA RUEDA MD 06/11/24 Reported Medications Pantoprazole Sodium Sesquihydr (Pantoprazole Sodium Dr) 40 Mg Tab, 40 MG PO DAILY for gerd, TAB 05/29/23 Pravastatin Sodium (PRAVACHOL TABLET) 20 Mg Tb, 1 TAB PO DAILY for hyperlipidemia, #30 TAB 5 Refills 05/27/23 Metoprolol Succinate (Metoprolol Succinate Er) 25 Mg Tab, 1 TAB PO BID for htn 04/13/23 Hctz (Hydrochlorothiazide) 25 Mg Tab, 1 TAB PO DAILY for edema/htn 04/13/23 Levothyroxine Sodium (Levothyroxine Sodium) 75 Mcg Tab, 1 TAB PO DAILY for low thyroid 04/13/23 Losartan Potassium (Losartan Potassium) 100 Mg Tab, 1 TAB PO DAILY for htn 04/13/23 Home Meds Home medications reviewed. Current Medications Current Medications Medications (Trade) Dose Ordered Sig/Pinky Route PRN Reason Start Time Stop Time Status Last Admin Famotidine (Pepcid Tablet) 20 mg DAILY PO 06/11/24 10:00 Review of Systems Constitutional: No symptom reported Ears, Nose, & Throat: No symptom reported Eyes: No symptom reported Neurological: No symptoms reported Pulmonary/Respiratory: Shortness of breath Cardiovascular: No symptom reported Gastrointestinal: No symptom reported Genitourinary: No symptom reported Musculoskeletal: Right lower extremity pain Skin: No symptom reported Psychiatric: No symptom reported Endocrine: No symptom reported Hematologic/Lymphatic: No symptom reported Vital Signs Vital Signs Date Time Temp Pulse Resp B/P (MAP) Pulse Ox O2 Delivery O2 Flow Rate FiO2 06/11/24 10:04 71 06/11/24 08:11 20 151/72 (98) 97 06/11/24 07:11 98.2 98.2 06/10/24 19:30 Room Air* 0 21 Physical Exam General Appearance: Cooperative. Well-developed. Well-nourished. No acute distress. Pulmonary/Respiratory: Clear, bilateral breaths sounds. Cardiovascular/Chest: Regular rate and rhythm. Peripheral Pulses: 2+ Radial (R). 2+ Radial (L). 2+ Pedal (R). 2+ Pedal (L) Abdominal Exam: Normal bowel sounds. Ankle Exam: Negative ankle edema Lower extremities: Negative lower extremity edema Neuro/Mental Status: A/OX4, coherent. Thoughts/Psych: Normal thought pattern. Appropriate mood and affect. Good judgment and insight. Appearance: No acute distress. Skin Exam: Normal inspection. Normal color. Warm and dry. Labs/Diagnostic Data Labs Test 06/11/24 05:50 06/10/24 13:07 06/09/24 21:56 06/09/24 20:50 Range/Units White Blood Count 4.7 4.4-10.8 10^3/uL Red Blood Count 4.33 4.0-5.20 10^6/uL Hemoglobin 12.3 12.2-16.2 g/dL Hematocrit 36.8 36.0-46.0 % Mean Corpuscular Volume 85.0 80.0-100.0 fL Mean Corpuscular Hemoglobin 28.4 28.0-32.0 pg Mean Corpuscular Hemoglobin Concent 33.4 32.0-36.0 g/dL Red Cell Distribution Width 13.7 11.8-14.3 % Platelet Count 171 140-450 10^3/uL Mean Platelet Volume 7.6 6.9-10.8 fL Neutrophils (%) (Auto) 52.7 37.0-80.0 % Lymphocytes (%) (Auto) 35.6 10.0-50.0 % Monocytes (%) (Auto) 9.8 0.0-12.0 % Eosinophils (%) (Auto) 1.5 0.0-7.0 % Basophils (%) (Auto) 0.4 0.0-2.0 % Neutrophils # (Auto) 2.5 1.6-8.6 10 ^3/uL Lymphocytes # (Auto) 1.7 0.4-5.4 10 ^3/uL Monocytes # (Auto) 0.5 0-1.3 10 ^3/uL Eosinophils # (Auto) 0.1 0-0.8 10 ^3/uL Basophils # (Auto) 0 0-0.2 10 ^3/uL Nucleated Red Blood Cells 0.1 % Sodium Level 139 136-145 mmol/L Potassium Level 3.8 3.5-5.1 mmol/L Chloride Level 105 98-107 mmol/L Carbon Dioxide Level 27 20-31 mmol/L Anion Gap 7 5-15 Blood Urea Nitrogen 23 9-23 mg/dL Creatinine 1.29 #H 0.550-1.02 mg/dL Glomerular Filtration Rate Calc 40 >90 mL/min BUN/Creatinine Ratio 17.8 10.0-20.0 Serum Glucose 96 74-106 mg/dL Calcium Level 9.4 8.7-10.4 mg/dL Troponin I High Sensitivity 153 *H </=34 ng/L Prothrombin Time 11.8 9.3-11.8 sec Prothrombin Time INR 1.13 0.9-1.15 Triglycerides Level 118 < 150 mg/dL Cholesterol Level 209 H < 200 mg/dL LDL Cholesterol 159 H < 100 mg/dL HDL Cholesterol 40 40-59 mg/dL Test 06/09/24 16:33 Range/Units Erythrocyte Sedimentation Rate 26 H 0-20 mm/hr Lactic Acid Level 0.8 0.4-2.0 mmol/L Total Bilirubin 0.5 0.2-1.0 mg/dL Aspartate Amino Transferase (AST) 27 13-40 U/L Alanine Aminotransferase (ALT) 25 7-40 U/L Alkaline Phosphatase 72 46-116 U/L C-Reactive Protein High Sensitivity 0.68 <1.0 mg/dL B-Type Natriuretic Peptide 187.59 0-100 pg/mL Total Protein 7.4 5.7-8.2 g/dL Albumin 4.2 3.2-4.8 g/dL Assessment Acute Pulmonary embolism without RV strain Acute right lower extremity DVT NSTEMI, likely type II secondary to above Hypertension Dyslipidemia Status post permanent pacemaker insertion (Biotronik) Questionable coronary artery disease (on Plavix and ASA therapy) Thyroid disease Varicose veins Obesity Plan/Recommendation We will continue with the following plan/recommendations (Dr. Walsh): * Transthoracic echocardiogram reveals an EF of 50% * Continue anticoagulation for PE and DVT * Patient was started on therapeutic Lovenox by ER staff * PESI score: 87 points (Class III-intermediate risk) * Right lower extremity thrombectomy Case reviewed with . The patient is hemodynamically stable at time of assessment. Transthoracic echocardiogram does not indicate any signs of RV strain. Patient is on room air with oxygen saturations at 98%. Patient denies any shortness of breath at time of assessment. The patient was not tachycardic and blood pressures are stable. Given that the patient has been having unreli eved pain to right lower extremity, we can offer the patient a right lower extremity thrombectomy. Plan of care discussed with the patient and her daughter at bedside. Patient was agreeable to undergo procedure. We will schedule the patient at first availability on 06/12/24. Thank you for allowing us to care for this patient. Please call with any questions or concerns. Critical care time spent: 41 minutes This medical document was created using an electronic medical record system with voice recognition software and computerized dictation system. Although this document has been carefully reviewed, there might still be some phonetic and typographical errors. Occasional wrong-word or ``sound-alike substitutions may have occurred due to the inherent limitations of voice recognition software. These areas are purely typographical due to imperfections of the software pr ograms and do not reflect any compromise in the patient's medical care. Please read the chart carefully and recognize, using context, where these substitutions have occurred. Plan discussed with: Patient NYHA Physical activity limitations: NA Date of Service: Jun 11, 2024 Billing Provider: LULY CANTRELL Cardiology Common Codes: 69079-IXTDIDE INP/OBS CARE (High) Cardiology Consultation Codes: 79378-OSHEMLQIK CONSULT <45MIN LULY CANTRELL Jun 11, 2024 10:09
[2024-06-11] MEDS: FAMOTIDINE 20 MG TAB PO SCH (10:25)
[2024-06-11 14:13] VITALS: BP 159/73; RESP 18; O2SAT 97
[2024-06-11] MEDS ORDERED: APIX5TAB PO (15:17)
--- NOTE | 2024-06-11 15:19 | DVHDS2 ---
Discharge Summary Date of Admission Jun 09, 2024 at 20:38 Date of Discharge: Jun 11, 2024 Labs/Diagnostic Data: Laboratory Results Test 06/11/24 05:50 06/10/24 13:07 06/09/24 21:56 06/09/24 20:50 White Blood Count 4.7 10^3/uL (4.4-10.8) Red Blood Count 4.33 10^6/uL (4.0-5.20) Hemoglobin 12.3 g/dL (12.2-16.2) Hematocrit 36.8 % (36.0-46.0) Mean Corpuscular Volume 85.0 fL (80.0-100.0) Mean Corpuscular Hemoglobin 28.4 pg (28.0-32.0) Mean Corpuscular Hemoglobin Concent 33.4 g/dL (32.0-36.0) Red Cell Distribution Width 13.7 % (11.8-14.3) Platelet Count 171 10^3/uL (140-450) Mean Platelet Volume 7.6 fL (6.9-10.8) Neutrophils (%) (Auto) 52.7 % (37.0-80.0) Lymphocytes (%) (Auto) 35.6 % (10.0-50.0) Monocytes (%) (Auto) 9.8 % (0.0-12.0) Eosinophils (%) (Auto) 1.5 % (0.0-7.0) Basophils (%) (Auto) 0.4 % (0.0-2.0) Neutrophils # (Auto) 2.5 10 ^3/uL (1.6-8.6) Lymphocytes # (Auto) 1.7 10 ^3/uL (0.4-5.4) Monocytes # (Auto) 0.5 10 ^3/uL (0-1.3) Eosinophils # (Auto) 0.1 10 ^3/uL (0-0.8) Basophils # (Auto) 0 10 ^3/uL (0-0.2) Nucleated Red Blood Cells 0.1 % Sodium Level 139 mmol/L (136-145) Potassium Level 3.8 mmol/L (3.5-5.1) Chloride Level 105 mmol/L (98-107) Carbon Dioxide Level 27 mmol/L (20-31) Anion Gap 7 (5-15) Blood Urea Nitrogen 23 mg/dL (9-23) Creatinine 1.29 mg/dL (0.550-1.02) Glomerular Filtration Rate Calc 40 mL/min (>90) BUN/Creatinine Ratio 17.8 (10.0-20.0) Serum Glucose 96 mg/dL (74-106) Calcium Level 9.4 mg/dL (8.7-10.4) Troponin I High Sensitivity 153 ng/L (</=34) Prothrombin Time 11.8 sec (9.3-11.8) Prothrombin Time INR 1.13 (0.9-1.15) Triglycerides Level 118 mg/dL (< 150) Cholesterol Level 209 mg/dL (< 200) LDL Cholesterol 159 mg/dL (< 100) HDL Cholesterol 40 mg/dL (40-59) Test 06/09/24 16:33 Erythrocyte Sedimentation Rate 26 mm/hr (0-20) Lactic Acid Level 0.8 mmol/L (0.4-2.0) Total Bilirubin 0.5 mg/dL (0.2-1.0) Aspartate Amino Transferase (AST) 27 U/L (13-40) Alanine Aminotransferase (ALT) 25 U/L (7-40) Alkaline Phosphatase 72 U/L (46-116) C-Reactive Protein High Sensitivity 0.68 mg/dL (<1.0) B-Type Natriuretic Peptide 187.59 pg/mL (0-100) Total Protein 7.4 g/dL (5.7-8.2) Albumin 4.2 g/dL (3.2-4.8) Other Laboratory Tests 06/11/24 05:50 Brief Hx & Hospital Course: Mrs. Eryn Miller is an 88 yo female with a past medical history of hypertension, Thyroid, pacemaker, right knee surgery who presents with a chief complaint of right lower extremity swelling , sent by her PCP to the ED to rule out DVT. Patient reports right lower extremity pain, right sided chest pain. Patient denies dyspnea, headaches, dizziness, lightheadedness, abdominal pain, nausea, vomiting, fevers, chills. Patient bilateral lower extremity venous ultrasound resulted Right lower extremity : Nonocclusive DVT involving distal femoral and popliteal veins. Left lower extremity: No DVT. Patient CTA chest resulted 1. Occlusive and partially occlusive segmental branches of the right upper pulmonary arteries. Critical Result: Pulmonary emboli. Patient troponin levels 164, 160, BNP 187, Na 140, K 3.6, BUN 26/1.21, WBC 5.1, H&H 12.4/38.1, Platelets 164. Patient daughter at bedside reports patient had a stent placement by Dr. Walsh and a pacemaker placement about a year ago. Patient admitted for further evaluation and treatment. She is admitted and noted to have a DVT as well as pulmonary embolism. Patient is started on IV heparin drip and subsequently transitioned to oral Eliquis. Patient's clinically remained stable without any hypotension. Echocardiogram did not show any right ventricular strain. Discussed with the patient's daughter at bedside on multiple occasions regarding patient's diagnosis and condition. Given etiology unclear she was advised to follow up with the primary care physician for further evaluation management of her blood clots. Given overall patient is clinically stable feeling better it is felt she could be safely discharged home. Patient as well as her daughter verbalized understanding over hospital diagnosis, treatment, discharge medications, discharge instructions and agree with follow-up plan of care as mentioned. Operations or Procedures Mitral Valve Mitral Mitral Stenosis E wave 0.72m/s MV Mean GR. mmHg A wave 1.10m/s MV Peak GR. 124mmHg E/A ratio 0.7 2D MVA cm2 DECEL Time 176ms PRESS 1/2 Time ms Aortic Valve Aortic Valve Aortic Stenosis V1 1.04m/s AO Mean GR. 10mmHg V2 2.13m/s AO Peak GR. 18mmHg LVOT Diameter 1.9 (1.8-2.4cm) Doppler NICOLASA 1.38cm2 AI P 1/2 Time 548.39ms Pulmonic Valve V2 1.01m/s Tricuspid Valve TR Velocity 2.35m/s RVSP 30mmHg Other Information Quality : Technically Limited Rhythm : Technically limited study due to body habitus.patient position. Conclusion Sinus bradycardia. Aortic root enlargement. Concentric LVH. Aortic sclerosis. Diminished excursion of the aortic leaflets. Mild mitral annular calcification. EF of 50% with normal RV function. Trace aortic insufficiency. Moderate tricuspid regurgitation. Trace mitral insufficiency. Small pericardial effusion/pericardial fat pad. No intracardiac masses thrombi or vegetations. Pacing lead noted in RV apex SIGNED BY: GIBRAN WALSH Sr., MD SIGNED DATE/TIME: 06/10/24 1543 Condition at Discharge: Stable Final Diagnosis/Problems List Nonocclusive right lower extremity DVT, peripheral pulmonary embolism Discharge Disposition: Home Discharge Instruct/Medications Diet: Consistent carbohydrate, Cardiac 2g Na,low cholest Activity: No Restrictions, As Tolerated Follow Up/Referral: Primary care physician next week for further evaluation and management of blood clots. Medications: As prescribed and home medications per discharge medication list. New Medications: Apixaban Base (Eliquis) 5 Mg Tab 5 MG PO BID, #120 TAB 1 Refill Take two tablets (10 mg) twice a day for next seven days. Then continue one tablet (5 mg) twice a day as prescribed. Continued Medications: Hctz (Hydrochlorothiazide) 25 Mg Tab 1 TAB PO DAILY for edema/htn Levothyroxine Sodium (Levothyroxine Sodium) 75 Mcg Tab 1 TAB PO DAILY for low thyroid Losartan Potassium (Losartan Potassium) 100 Mg Tab 1 TAB PO DAILY for htn Metoprolol Succinate (Metoprolol Succinate Er) 25 Mg Tab 1 TAB PO BID for htn Pantoprazole Sodium Sesquihydr (Pantoprazole Sodium Dr) 40 Mg Tab 40 MG PO DAILY for gerd, TAB Pravastatin Sodium (Pravachol Tablet) 20 Mg Tb 1 TAB PO DAILY for hyperlipidemia, #30 TAB 5 Refills Discharge Statement: "Patient was advised to return to the ER or call 911 if any headaches, dizziness, shortness of breath, chest pain, abdominal pain, bleeding, fevers, or worsening of medical condition. Patient was counseled about treatment plan, medications, possible side effects, patientverbalized understanding. All questions were answered to the best of my ability. This discharge took greater then 30 minutes in planning, reviewing documentation, counseling the patient, and discussing with other team members." ASSESSMENT ASSESSMENT Assessment Nonocclusive right lower extremity DVT, peripheral pulmonary embolism RUMA RUEDA MD Jun 11, 2024 15:19
[2024-06-11 16:00] VITALS: PULSE 70
[2024-06-11] MEDS: APIXABAN 5 MG TAB PO SCH (16:33)
[2024-06-11] MEDS ORDERED: APIXABAN 5 MG TAB PO SCH (22:00)
--- NOTE | 2024-06-12 08:21 | ECG ---
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
[2024-06-19] MEDS ORDERED: APIXABAN 5 MG TAB PO SCH (10:00)
== END 2024-06-11 16:00 | disposition home or self-care (01) | DRG 280 ==
LOC: ER 15:22 → OVERFLOW 20:38
PROVIDERS: ADMIT Nurse Practitioner Family; ATTEND Nurse Practitioner Family
DX: I82.411 Acute embolism and thrombosis of right femoral vein (principal); I26.99 Other pulmonary embolism without acute cor pulmonale; I21.A1 Myocardial infarction type 2; E03.9 Hypothyroidism, unspecified; I10 Essential (primary) hypertension; E78.5 Hyperlipidemia, unspecified; Z96.651 Presence of right artificial knee joint; E66.9 Obesity, unspecified; K21.9 Gastro-esophageal reflux disease without esophagitis; Z90.710 Acquired absence of both cervix and uterus; Z95.0 Presence of cardiac pacemaker; Z87.891 Personal history of nicotine dependence; Z68.27 Body mass index [BMI] 27.0-27.9, adult; Z79.02 Long term (current) use of antithrombotics/antiplatelets; Z79.01 Long term (current) use of anticoagulants
CPT/HCPCS: 36415; 71275; 80048; 80053; 80061; 83605; 83880; 84484; 85025; 85610; 85652; 86141; 93005; 93306; 93970; 97163; 99291; G0378